=== PATIENT | male | born 1960 | race African-American/Black ===

== ENCOUNTER 2022-07-09 11:03 | Emergency (ER) | payer MEDICAID, OTHER ==
[~2022-07-09] VITALS: Ht 177.8 cm; Wt 68.0 kg
[~2022-07-09 11:03] MED LIST: AMIT25TA9 PO; AMLO10TA80 PO; ASPI-1406 PO; AZIT250T12 MT; BUSP30TA2 PO; CYCL10TA21 PO; FLUT1BLS ORI; GLIP5TAB12 PO; GUAI-741 PO; HYDR50TA55 PO; LIP40 PO; LISI40TA13 PO; MED4 MT; METF-416 PO; MIRT30TA77 PO; SIMV-46 PO; ZIPR40CA13 PO; ZIPR80CA9 PO
[2022-07-09] MEDS ORDERED: ACETAMINOPHEN WITH CODEINE 300/30MG TABLET PO ONE (11:30)
[2022-07-09 11:44] VITALS: BP 148/89
[2022-07-09] MEDS ORDERED: TOPUD PO (12:22)
== END 2022-07-09 12:46 | disposition home or self-care (01) ==
LOC: ER 11:44
DX: M25.552 Pain in left hip (principal); J45.909 Unspecified asthma, uncomplicated; Z79.899 Other long term (current) drug therapy; E78.00 Pure hypercholesterolemia, unspecified; E11.9 Type 2 diabetes mellitus without complications; W01.0XXA Fall on same level from slipping, tripping and stumbling without subsequent striking against object, initial encounter; Y93.89 Activity, other specified; Y92.89 Other specified places as the place of occurrence of the external cause; Y99.8 Other external cause status; I10 Essential (primary) hypertension
CPT/HCPCS: 72170; 99283

== ENCOUNTER 2022-07-25 12:42 | Emergency (ER) | payer OTHER ==
[~2022-07-25] VITALS: Ht 177.8 cm; Wt 63.0 kg
[~2022-07-25 12:42] MED LIST changes: +TOPUD PO
[2022-07-25] MEDS ORDERED: SODIUM CHLORIDE 0.9% 1,000 ML IV ONE (13:00)
[2022-07-25] MEDS ORDERED: KETOROLAC 15MG/ML VIAL IV ONE (13:00)
[2022-07-25 14:03] LABS: HEMATOCRIT 35.2 % (42.0-52.0); HEMOGLOBIN 12.4 g/dL (14.0-18.0); MEAN CORPUSCULAR HEMOGLOBIN 26.9 pg (28.0-32.0); PLATELET 229 x1000/uL (130-400); RED BLOOD CELL COUNT 4.63 mill/uL (4.7-6.1); RED CELL DISTRIBUTION WIDTH 14.4 % (11.6-14.6)
[2022-07-25 14:12] LABS: CHLORIDE 95 mEq/L (98-107)
[2022-07-25 14:27] LABS: BETA HYDROXYBUTYRATE 0.3 mMol/L (0.0-0.3)
[2022-07-25] MEDS ORDERED: SODIUM CHLORIDE 0.9% 1,000 ML IV NR (14:45)
[2022-07-25] MEDS ORDERED: INSULIN LISPRO 100 UNITS/ML SUBCUT NR (14:45)
[2022-07-25 16:36] LABS: CLARITY URINE CLEAR (CLEAR); COLOR URINE YELLOW (YELLOW); KETONES URINE NEGATIVE (NEGATIVE); LEUKOCYTE ESTERASE URINE NEGATIVE (NEGATIVE); NITRITE URINE NEGATIVE (NEGATIVE); OCCULT BLOOD URINE NEGATIVE (NEGATIVE); PH URINE 5.5 (4.5-8.0); PROTEIN URINE NEGATIVE (NEGATIVE); SPECIFIC GRAVITY URINE 1.037 (1.005-1.030); UROBILINOGEN URINE 0.2 E.U./dL (0.2-1.0)
[2022-07-25 17:12] VITALS: BP 137/70
== END 2022-07-25 17:23 | disposition home or self-care (01) ==
LOC: ER 12:42
DX: E11.65 Type 2 diabetes mellitus with hyperglycemia (principal); G89.29 Other chronic pain; M25.552 Pain in left hip; I10 Essential (primary) hypertension; Z79.899 Other long term (current) drug therapy
CPT/HCPCS: 36415; 71045; 80053; 81003; 82010; 82962; 84484; 85027; 96361; 96372; 96374; 99284; J1815; J1885; J7030; L3670